=== PATIENT | female | born 1955 | race Caucasian/White ===

== ENCOUNTER → 2020-03-11 | Outpatient (CLI) | payer BC | END | disposition home or self-care (01) | LOC: LAB SHORT 14:34 → PLD 14:34 | DX: D48.5 Neoplasm of uncertain behavior of skin (principal) | CPT/HCPCS: 88304 ==

== ENCOUNTER 2022-10-11 06:31 | Day surgery (SDC) | payer BC ==
[~2022-10-11] VITALS: Ht 172.7 cm; Wt 91.8 kg
[2022-10-11] VITALS (15 sets, daily range): BP systolic 86–119; BP diastolic 39–89
[~2022-10-11 06:31] MED LIST: BENADRYL25 MG PO; CEQUA1 EACH BOTHEYES; IBUP200 PO; ZYRTEC10 M4 PO
--- NOTE | 2022-10-11 07:42 | NUR ---
W/C & Ambulatory in Day Surgery History, Chart, Medications and Allergies reviewed before start of procedure.Patient confirms NPO status and agrees with scheduled surgery. Pre-Op teaching done. Pt verbalizes understanding.
--- NOTE | 2022-10-11 12:00 | NUR ---
ARRIVAL PATIENT ARRIVED TO UNIT VIA BED. REPORTS PAIN TO LEFT LEG 5/10 AT THIS TIME. AQUACEL, ARIANNA WRAP, & POLAR PACK TO LEFT KNEE. FULL SENSATION TO BLE, WIGGLES ALL TOES APPROPRIATELY. VSS ON RA, LUNGS CLEAR. PLAN TO MEDICATE PER EMAR. ORIENTED TO ROOM & CALL LIGHT, IN REACH.
--- NOTE | 2022-10-11 16:00 | NUR ---
SCRIPTS SENT WITH TO GET FILLED. COPIES ON CHART.
[2022-10-11] MEDS ORDERED: ASPI81CH PO (17:10)
[2022-10-11] MEDS ORDERED: Percocet 5-3251 EACH PO (17:11)
--- NOTE | 2022-10-11 17:50 | NUR ---
DISCHARGE PATIENT CLEARED THERAPY WELL. AMBULATING SBA W/ FWW & GB. AQUACEL & ARIANNA WRAP TO LEFT KNEE, C/D/I. CHRIST[facility] REPORTS MODERATE PAIN, ALTHOUGH REPORTS TO BE TOLERABLE & MANAGED WELL PER EMAR. EATING, DRINKING, & VOIDING WELL. DISCUSSED DISCHARGE INSTRUCTIONS. INSTRUCTED TO LEAVE ARIANNA WRAP IN PLACE THROUGH THE NIGHT AND MAY REMOVE IN AM. SENT DISCHARGE INSTRUCTIONS, POLAR PACK & AQUACEL DRESSINGS WITH PATIENT. ESCORTED OUT VIA W/C.
== END 2022-10-11 17:45 | disposition home or self-care (01) ==
LOC: ORSCMMR 06:31 → ORD 08:15 → ORSCMMR 08:15 → SURS 11:54 → ORSCMMR 17:45
PROVIDERS: Orthopaedic Surgery
PROC: 8E0Y0CZ Robotic Assisted Procedure of Lower Extremity, Open Approach (ICD-10-PCS; principal; 2022-10-11 08:15)
PROC: 0SRD0JA Replacement of Left Knee Joint with Synthetic Substitute, Uncemented, Open Approach (ICD-10-PCS; principal; 2022-10-11 08:15)
DX: M17.11 Unilateral primary osteoarthritis, right knee (principal)
CPT/HCPCS: 27447; 20985; S2900; 73560-LT; 97110; 97161; 97530; A9270; C1776; J0171; J0690; J0735; J1100; J1170; J1885; J2250; J2370; J2405; J2704; J2795; J3010; J7120